=== PATIENT | female | born 1990 | race African-American/Black ===

== ENCOUNTER 2018-03-25 13:37 | Emergency (ER) | payer OTHER ==
[2018-03-25 13:50] VITALS: BP 100/70; PULSE 103; TEMP 98.4; BMI 46.1
--- NOTE | 2018-03-25 13:57 | PDOC ---
History of Present Illness - General Chief Complaint: Pain Stated Complaint: PAIN Time Seen by Provider: 03/25/18 13:56 Past History - Past Medical History Allergies/Adverse Reactions: Allergies Allergy/AdvReac Type Severity Reaction Status Date / Time SEAFOOD Allergy Swelling Uncoded 03/25/18 13:47 Home Medications: Ambulatory Orders Nitrofurantoin Monohyd/M-Cryst [Macrobid -] 100 mg PO BID #14 capsule 09/12/14 Terconazole [Terazol 7] 45 gm VG DAILY #1 cream.appl 09/12/14 Asthma: Yes COPD: No - Suicide/Smoking/Psychosocial Hx Smoking History: Never smoked Hx Alcohol Use: Yes (OCC) *Physical Exam - Vital Signs Last Vital Signs Temp Pulse Resp BP Pulse Ox 98.4 F 103 H 18 100/70 98 03/25/18 13:48 03/25/18 13:48 03/25/18 13:48 03/25/18 13:48 03/25/18 13:48 *DC/Admit/Observation/Transfer - Referrals Referrals: Giovanny Hall [Primary Care Provider] - - Patient Instructions - Post Discharge Activity
--- NOTE | 2018-03-25 14:02 | PDOC ---
History of Present Illness - General Chief Complaint: Pain Stated Complaint: PAIN Time Seen by Provider: 03/25/18 13:56 History Source: Patient Exam Limitations: No Limitations - History of Present Illness Initial Comments: 03/25/18 14:02 27 yr female states she is 4 months with 4 days abd cramping and vaginal discharge. Pt denies nvd no fever no chills no back pain. Pt has had an unremarkable course. Past History - Past Medical History Allergies/Adverse Reactions: Allergies Allergy/AdvReac Type Severity Reaction Status Date / Time No Known Drug Allergies Allergy Verified 03/25/18 16:23 SEAFOOD Allergy Swelling Uncoded 03/25/18 13:47 Home Medications: Ambulatory Orders Nitrofurantoin Monohyd/M-Cryst [Macrobid -] 100 mg PO BID #14 capsule 09/12/14 Terconazole [Terazol 7] 45 gm VG DAILY #1 cream.appl 09/12/14 Asthma: Yes COPD: No - Suicide/Smoking/Psychosocial Hx Smoking History: Never smoked Hx Alcohol Use: Yes (OCC) *Physical Exam - Vital Signs Last Vital Signs Temp Pulse Resp BP Pulse Ox 98.4 F 103 H 18 100/70 98 03/25/18 13:48 03/25/18 13:48 03/25/18 13:48 03/25/18 13:48 03/25/18 13:48 - Physical Exam General Appearance: Yes: Nourished, Obese HEENT: positive: EOMI, MIKE Neck: positive: Supple Respiratory/Chest: positive: Lungs Clear, Normal Breath Sounds Cardiovascular: positive: Regular Rhythm, Regular Rate Female Pelvic Exam: positive: normal external exam, discharge (thick yellow/ green). negative: CMT Musculoskeletal: positive: Normal Inspection Extremity: positive: Normal Inspection, Normal Range of Motion Medical Decision Making - Medical Decision Making 03/25/18 14:32 cc: vaginal discharge for 3 days with cramping no vaginal bleeding denies nvd one partner last sexual activity 2 weeks ago denies any painful intercourse LMP 11/13/17 cultures obtained, UA , pt to ultrasound pt stable no distress. 03/25/18 15:02 *DC/Admit/Observation/Transfer Diagnosis at time of Disposition: Vaginal discharge during in second trimester - Discharge Dispostion Disposition: HOME Condition at time of disposition: Good - Referrals Referrals: Giovanny Hall [Non Staff, Medical] - - Patient Instructions Additional Instructions: please follow with your OB next week call Wednesday to make appointment please tell your sexual partner to be tested for STD infections refrain from any sexual activity until you have been notified of the culture results done today , we should be calling you in 3-5 days with the results, you have been treated today for vaginal infections, you may need more treatment depending on the results return to the ER for any severe pain , fever, vaginal bleeding or any other concerns - Post Discharge Activity
[2018-03-25 14:29] LABS: URINE APPEARANCE SLCLOUDY; URINE BILIRUBIN NEGATIVE (<2.0 mg/dL); URINE COLOR AMBER; URINE GLUCOSE (UA) NEGATIVE (NEGATIVE); URINE KETONE NEGATIVE (NEGATIVE); URINE NITRITE NEGATIVE (NEGATIVE); URINE PROTEIN NEGATIVE (NEGATIVE)
[2018-03-25] MEDS ORDERED: AZITHROMYCIN 1 GM PACKET PO ONE (14:30)
[2018-03-25 14:40] LABS: URINE LEUK ESTERASE 2+ (NEGATIVE)
[2018-03-25 14:41] LABS: EPI CELLS RARE /HPF (FEW); URINE BACTERIA RARE /hpf (NONE SEEN); URINE HYALINE CAST 1 /lpf; URINE MUCUS RARE
[2018-03-25] MEDS ORDERED: cefTRIAXone SODIUM 1 GM VIAL ONE (15:09)
[2018-03-25] MEDS ORDERED: AZITHROMYCIN 200 MG/5 ML BOTTLE ONE (15:09)
== END 2018-03-25 16:40 | disposition home or self-care (01) ==
LOC: JER 13:37
DX: O26.892 Other specified pregnancy related conditions, second trimester (principal); N89.8 Other specified noninflammatory disorders of vagina; Z3A.16 16 weeks gestation of pregnancy
CPT/HCPCS: 36415; 76815; 81003; 81015; 87070; 87086; 87205; 87491; 87591; 99282-25

== ENCOUNTER 2018-09-02 17:20 | Inpatient (IN) | payer OTHER ==
[2018-09-02] MEDS ORDERED: AMPICILLIN - 2 GM in DEXTROSE 5%-WATER 100 ML IVPB ONE (18:00)
[2018-09-02 18:10] VITALS: BMI 64.4
[2018-09-02] MEDS ORDERED: ELECTROLYTE-148 SOLN 1,000 ML IV SCH ×2 (18:15→19:45)
[2018-09-02] MEDS ORDERED: MIDAZOLAM HCL 2 MG/2 ML SINGLE DOSE VIAL ONE (18:32)
[2018-09-02] MEDS ORDERED: SUCCINYLCHOLINE CHLORIDE 200 MG/10 ML VIAL ONE (18:33)
[2018-09-02] MEDS ORDERED: PROPOFOL 20 ML ONE (18:33)
[2018-09-02] MEDS ORDERED: LIDOCAINE HCL/PF 2% SDV 5ML VIAL ONE (18:34)
[2018-09-02] MEDS ORDERED: morphine SULFATE/Preservative Free 0.5 MG/ML (1cc Syringe) ONE ×2 (18:51→19:49)
[2018-09-02 19:01] LABS: BASO % 1.1 % (0-2.0); EOS % 0.2 % (0-4.5); HEMATOCRIT 34.9 % (32.4-45.2); MCH 34.2 pg (25.7-33.7); MCHC 34.3 g/dl (32.0-36.0); MEAN CELL VOLUME 99.7 fl (80-96); MEAN PLT VOLUME 7.9 fl (7.5-11.1); MONO % 6.4 % (3.8-10.2); NEUT % 68.3 % (42.8-82.8); PLATELET COUNT 320 K/MM3 (134-434); RDW 12.3 % (11.6-15.6); WHITE BLOOD COUNT 10.7 K/mm3 (4.0-10.0)
[2018-09-02 19:14] LABS: INR 0.86 (0.83-1.09); PROTHROMBIN TIME (PATIENT) 10.1 SEC (9.7-13.0)
[2018-09-02] MEDS: AMPICILLIN - 1 GM in DEXTROSE 5%-WATER 100 ML IVPB SCH (19:30)
[2018-09-02] MEDS ORDERED: CITRIC ACID/SODIUM CITRATE 30 ML UNIT-DOSE CUP PO ONE (19:42)
[2018-09-02 19:44] LABS: ALBUMIN 2.7 g/dl (3.4-5.0); ALK PHOS 217 U/L (45-117); ANION GAP 10 MMOL/L (8-16); BILIRUBIN,TOTAL 0.5 mg/dL (0.2-1); BLOOD UREA NITROGEN 10 mg/dL (7-18); CALCIUM 8.6 mg/dL (8.5-10.1); CHLORIDE 105 mmol/L (98-107); CO2 23 mmol/L (22-28); CREATININE 0.6 mg/dL (0.55-1.3); GLUCOSE,RANDOM 135 mg/dL (74-106); SGOT/AST 20 U/L (15-37); SGPT/ALT 22 U/L (13-61); SODIUM 137 mmol/L (136-145); TOT PROT 6.2 g/dl (6.4-8.2); URIC ACID 4.3 mg/dL (2.6-7.2)
[2018-09-02] MEDS ORDERED: OXYTOCIN 10 UNITS/ML VIAL ONE (19:58)
[2018-09-02] MEDS ORDERED: AMPICILLIN SODIUM 1 GM VIAL ONE (20:01)
[2018-09-02] MEDS ORDERED: KETOROLAC TROMETHAMINE 30 MG/1 ML VIAL ONE (20:19)
--- NOTE | 2018-09-02 20:22 | HP ---
Past Medical History - Primary Care Physician PCP:: David Hall - Admission Chief Complaint: 40 weeks , rom, meconium , labor , non reassuring heart, morbid obesity History of Present Illness: 28 yo f g 1 p0 edc 09/02/18 40 weeks, c/o rom since 2 pm today , yellow fluid , with contraction, no bleeding, no fever , fhr poor BTBV with decelration, irregular contraction , cx 2 cm 80 vx -3 mr, thick mec , advised c/s , risks of c/s discussed in view of morbid obesity History Source: Patient Limitations to Obtaining History: No Limitations - Past Medical History Pulmonary: Yes: Asthma ...: 1 ...EDC by Daniel: 09/02/18 Infectious Disease: Yes: STD's (txed for chlamydia) - Past Surgical History Hx Myomectomy: No Hx Transabdominal Cerclage: No - Smoking History Smoking history: Never smoked Have you smoked in the past 12 months: No - Alcohol/Substance Use Hx Alcohol Use: No - Social History History of Recent Travel: No Home Medications - Allergies Allergies/Adverse Reactions: Allergies Allergy/AdvReac Type Severity Reaction Status Date / Time No Known Drug Allergies Allergy Verified 03/25/18 16:23 SEAFOOD Allergy Swelling Uncoded 03/25/18 13:47 - Home Medications Home Medications: Ambulatory Orders Nitrofurantoin Monohyd/M-Cryst [Macrobid -] 100 mg PO BID #14 capsule 09/12/14 Terconazole [Terazol 7] 45 gm VG DAILY #1 cream.appl 09/12/14 Review of Systems - Review of Systems Constitutional: reports: No Symptoms Eyes: reports: No Symptoms HENT: reports: No Symptoms Neck: reports: No Symptoms Cardiovascular: reports: No Symptoms Respiratory: reports: No Symptoms Gastrointestinal: reports: No Symptoms Genitourinary: reports: No Symptoms Breasts: reports: No Symptoms Reported Musculoskeletal: reports: No Symptoms Integumentary: reports: No Symptoms Neurological: reports: No Symptoms Endocrine: reports: No Symptoms Hematology/Lymphatic: reports: No Symptoms Psychiatric: reports: No Symptoms Physical Exam - Maternity Vital Signs: Vital Signs Temperature 98.4 F 09/02/18 18:20 Pulse Rate 90 09/02/18 18:30 Respiratory Rate 18 09/02/18 18:30 Blood Pressure 165/110 H 09/02/18 18:30 O2 Sat by Pulse Oximetry (%) Constitutional: Yes: Obese, Poor Hygeine Eyes: Yes: WNL HENT: Yes: WNL Neck: Yes: WNL Cardiovascular: Yes: WNL Breast(s): Yes: WNL - Abdominal Exam/OB Number of Fetuses: Single Presentation: Vertex Contractions: Yes Regularity: Irregular Intensity: Mod/Strong Monitor Mode: External Heart Rate Location: [facility] Category: II Accelerations: None Decelerations: Variable - Vaginal Exam/OB Vaginal Bleediing: No Speculum Exam: No Dilatation (cm): 2 cm Effacement (%): 80 Amniotic Fluid: Yes: Meconium Stained Meconium: Moderate Presentation: Vertex/Position Station: -3 - Physical Exam Edema: Yes Edema: LLE: 1+, RLE: 1+ Deep Tendon Reflex Grade: Normal +2 Psychiatric: Yes: WNL - Labs Lab Results: CBC, BMP 09/02/18 18:51 09/02/18 18:51 Hemorrhage Risk Assessment - Risk Factors Medium Risk Factors: Yes: Obesity (BMI >40) Risk Score: 3 Risk Level: High Risk Problem List - Problems (1) Post term over 40 weeks Code(s): O48.0 - POST-TERM (2) 40 weeks gestation of Code(s): Z3A.40 - 40 WEEKS GESTATION OF (3) membrane rupture Code(s): KCC9884 - (4) Meconium in amniotic fluid Code(s): P96.83 - MECONIUM STAINING (5) Non-reassuring electronic monitoring tracing Code(s): O76 - ABNLT IN HEART RATE AND RHYTHM COMP LABOR AND DELIVERY (6) Morbid (severe) obesity due to excess calories Code(s): E66.01 - MORBID (SEVERE) OBESITY DUE TO EXCESS CALORIES Assessment/Plan plan admit, fhm, need for c/s discussed with patient , risks of infection, bleeding, hemorrhage , dvt, anesthesia , post op complication discussed
[2018-09-02 20:36] LABS: ARTERIAL BLOOD GAS BASE EXCESS -10.8 meq/l (-2-2); ARTERIAL BLOOD GAS PO2 4.8 mmHg (80-100)
[2018-09-02 20:45] LABS: VENOUS PH 7.13 (7.32-7.42)
[2018-09-02 20:46] LABS: VENOUS PC02 66.5 mmHg (38-52); VENOUS PO2 19.5 mmHg (28-48)
[2018-09-02 20:47] LABS: ARTERIAL BLOOD GAS pH 7.06 (7.35-7.45)
[2018-09-02 20:48] LABS: ARTERIAL BLD GAS O2 SATURATION 2.4 % (90-98.9)
[2018-09-02] MEDS ORDERED: OXYTOCIN 20 UNITS in 0.9% NS 20 UNIT/1,000 ML INFUS.BAG IV ONE ×2 (20:57→23:44)
[2018-09-02] MEDS ORDERED: IBUPROFEN 800 MG/8 ML IJ IVPB PRN (21:18)
[2018-09-02] MEDS ORDERED: BENZOCAINE 20% 57 GM BOTTLE TP PRN (21:18)
[2018-09-02] MEDS ORDERED: WITCH HAZEL 50% (TUCKS) 40 PAD/JAR PAD TP PRN (21:18)
[2018-09-02] MEDS ORDERED: oxyCODONE HCL 5 MG TABLET PO PRN (21:18)
[2018-09-02] MEDS ORDERED: METHYLERGONOVINE MALEATE 0.2 MG/1 ML AMP IM PRN (21:18)
[2018-09-02] MEDS ORDERED: diphenhydrAMINE HCL 25 MG CAPSULE (FP) PO PRN (21:18)
[2018-09-02] MEDS ORDERED: BENZOCAINE 28 GM HEMORRHOIDAL OINTMENT PR PRN (21:18)
[2018-09-02] MEDS ORDERED: DEXTROSE 5%-LACTATED RINGERS 1,000 ML IV SCH (21:30)
[2018-09-02] MEDS ORDERED: OXYTOCIN 20 UNITS in 0.9% NS 20 UNIT/1,000 ML INFUS.BAG IV SCH (21:30)
[2018-09-02] MEDS ORDERED: LABETALOL HCL 200 MG TABLET (FP) PO ONE (22:30)
[2018-09-02] MEDS ORDERED: NIFEdipine E.R. 30 MG TABLET (FP) PO ONE (23:45)
[2018-09-03] MEDS ORDERED: ceFAZolin 2 GRAM PREMIX BAG IVPB SCH (02:00)
[2018-09-03] MEDS: CEFAZOLIN 2 GM/D5W 2 GM/50 ML ML IVPB SCH ×3 (02:00→17:51)
[2018-09-03] MEDS: AMPICILLIN - 1 GM in DEXTROSE 5%-WATER 100 ML IVPB SCH ×2 (02:05→06:31)
[2018-09-03] MEDS ORDERED: OXYTOCIN 20 UNITS in 0.9% NS 20 UNIT/1,000 ML INFUS.BAG IV SCH (05:29)
--- NOTE | 2018-09-03 09:00 | PN ---
Progress Note (short form) - Note Progress Note: pod 1s/p primary LST c/s , doing well, no c/o Last Vital Signs Temp Pulse Resp BP Pulse Ox 98.2 F 95 H 18 122/63 100 09/03/18 08:33 09/03/18 08:33 09/03/18 08:33 09/03/18 08:33 09/03/18 00:00 abdomen soft,no distension, no cva , incision dry, clean no calf tenderness no excess vaginal bleeding plan ambulate, cbc advance diet dvt prophylaxis Problem List - Problems (1) Post term over 40 weeks Code(s): O48.0 - POST-TERM (2) 40 weeks gestation of Code(s): Z3A.40 - 40 WEEKS GESTATION OF (3) membrane rupture Code(s): [id number] - (4) Meconium in amniotic fluid Code(s): P96.83 - MECONIUM STAINING (5) Non-reassuring electronic monitoring tracing Code(s): O76 - ABNLT IN HEART RATE AND RHYTHM COMP LABOR AND DELIVERY (6) Morbid (severe) obesity due to excess calories Code(s): E66.01 - MORBID (SEVERE) OBESITY DUE TO EXCESS CALORIES
[2018-09-03 09:11] LABS: BASO % 0.4 % (0-2.0); EOS % 0.2 % (0-4.5); HEMATOCRIT 29.9 % (32.4-45.2); HEMOGLOBIN 10.2 GM/dL (10.7-15.3); LYMPH % 24.6 % (8-40); MCH 33.8 pg (25.7-33.7); MEAN CELL VOLUME 99.5 fl (80-96); MEAN PLT VOLUME 7.5 fl (7.5-11.1); MONO % 9.6 % (3.8-10.2); NEUT % 65.2 % (42.8-82.8); PLATELET COUNT 270 K/MM3 (134-434); RDW 12.3 % (11.6-15.6); WHITE BLOOD COUNT 11.3 K/mm3 (4.0-10.0)
--- NOTE | 2018-09-03 09:36 | PN ---
Progress Note (short form) - Note Progress Note: Post op day#1.S/P C section under spinal anesthesia uneventful.Patient stable and has little pain for which she is on medication.No any anesthesia realted problem.Patient DC from the anesthesia care.
[2018-09-03] MEDS: SIMETHICONE 80 MG TAB.CHEW (FP) PO PRN ×3 (09:37→19:29)
--- NOTE | 2018-09-03 09:41 | OP ---
DATE OF OPERATION: 09/02/2018 PREOPERATIVE DIAGNOSES: , 40 weeks, ruptured membrane, meconium amniotic fluid, nonreassuring heart rate, morbid obesity. POSTOPERATIVE DIAGNOSES: , 40 weeks, ruptured membrane, meconium amniotic fluid, nonreassuring heart rate, morbid obesity. PROCEDURE: Primary low segment transverse section. SURGEON: David Hall MD OBSTETRIC ASSISTANT: Milana Franco MD ESTIMATED BLOOD LOSS: 500 mL. ANESTHESIA: Spinal. ANESTHESIOLOGIST: Be Barrera MD FINDINGS: A live baby, 5, 7. OPERATION: Patient was taken to the operating room. Had adequate spinal anesthesia. Abdomen and perineum were prepped and draped. Pfannenstiel abdominal skin incision was made. Abdominal wall was cut layer by layer until peritoneum was exposed and incised. Upon entering the abdominal cavity bowels were packed away. Lower uterine segment was identified and uterovesical fold of peritoneum established. Bladder was pushed down. A low transverse uterine incision was made. The incision extended laterally. Meconium amniotic fluid was evident. Head delivered from occiput posterior position. Cord around the neck x1 reduced and live baby was delivered, 5, 7. Baby attended by hot box spotter. Placenta was delivered manually. Uterine cavity was cleaned of all remaining tissue. Uterine incision was closed in 2 layers, 1st layer with 0 Biosyn continuous suture, the 2nd layer with 0 Biosyn imbricating the 1st layer. There was some bleeding at the left anterior aspect of uterine incision which figure-of-8 suture was applied and hemostasis was established. Then the bladder flap was closed with continuous suture of 2-0 Biosyn. Both tubes and ovaries were checked, were normal. No active bleeding was seen. All the lap pad, sponge count and instrument count were correct. Pelvic cavity irrigated. No active bleeding was seen. Peritoneum was closed with 0 Biosyn continuous suture. Muscle layer brought together with interrupted suture of 0 Biosyn. Fascia was closed with 0 Biosyn continuous suture, subcutaneous fat with interrupted suture of 0 Biosyn and the skin was closed with yulisa. Patient tolerated procedure well, left the OR in good condition. Selwyn [id number]
--- NOTE | 2018-09-03 09:59 | CONSULT ---
Consult Consult Specialty:: Nephrology ( Baljinder/ Jaya) Referred by:: Dr. William Reason for Consultation:: 28 yo f g p0 edc 09/02/18 40 weeks, morbidly obese, s/p LSCS, patient developed Hypertension intra- and Hypertensuion. - History Source History Provided By: Patient, Medical Record - Past Medical History Pulmonary: Yes: Asthma Renal/: No: Hematuria Infectious Disease: Yes: STD's (txed for chlamydia) Rheumatology: No: Lupus, Vasculitis ENT: No: Sinusitis - Alcohol/Substance Use Hx Alcohol Use: No - Smoking History Smoking history: Never smoked Have you smoked in the past 12 months: No - Social History History of Recent Travel: No Home Medications - Allergies Allergies/Adverse Reactions: Allergies Allergy/AdvReac Type Severity Reaction Status Date / Time No Known Drug Allergies Allergy Verified 03/25/18 16:23 SEAFOOD Allergy Swelling Uncoded 03/25/18 13:47 - Home Medications Home Medications: Ambulatory Orders Nitrofurantoin Monohyd/M-Cryst [Macrobid -] 100 mg PO BID #14 capsule 09/12/14 Terconazole [Terazol 7] 45 gm VG DAILY #1 cream.appl 09/12/14 Review of Systems - Review of Systems Constitutional: reports: No Symptoms Eyes: denies: Blurred Vision, Double Vision, Eye Pain, Photophobia Cardiovascular: reports: No Symptoms Respiratory: reports: No Symptoms Gastrointestinal: reports: No Symptoms Genitourinary: reports: No Symptoms Neurological: reports: No Symptoms Endocrine: reports: No Symptoms Hematology/Lymphatic: reports: No Symptoms Psychiatric: reports: No Symptoms Physical Exam Vital Signs: Vital Signs Temperature 98.2 F 09/03/18 08:33 Pulse Rate 95 H 09/03/18 08:33 Respiratory Rate 20 09/03/18 09:00 Blood Pressure 122/63 09/03/18 08:33 O2 Sat by Pulse Oximetry (%) 100 09/03/18 00:00 Constitutional: Yes: Well Nourished, Other (morbidly obese) Eyes: Yes: WNL HENT: Yes: WNL Neck: Yes: WNL, Supple Cardiovascular: Yes: Regular Rate and Rhythm Respiratory: Yes: CTA Bilaterally, Diminished, Poor Air Entry Gastrointestinal: Yes: Normal Bowel Sounds Renal/: No: CVA Tenderness - Left, CVA Tenderness - Right Edema: Yes Edema: LLE: Trace, RLE: Trace Integumentary: Yes: WNL Neurological: Yes: Alert, Oriented Labs: CBC, BMP 09/03/18 08:44 09/02/18 18:51 Problem List - Problems (1) Hypertension affecting , delivered, current hospitalization Code(s): O16.4 - UNSPECIFIED MATERNAL HYPERTENSION, COMPLICATING CHILDBIRTH (2) 40 weeks gestation of Code(s): Z3A.40 - 40 WEEKS GESTATION OF Assessment/Plan 28 yo f g 1 p0 edc 09/02/18 40 weeks, morbid obesity, Ch. Bronchial asthma... S/P LSCS Hypertension associated with . Treated with Labetalol. No evidence of HELLP. BP in acceptable range at this point. Will Continue the labetalol PRN. Extensive w/u not warranted at this point. Thank you. Will follow with you. Lupe rizo MD
[2018-09-03] MEDS: IBUPROFEN 600 MG TABLET (FP) PO PRN (14:24)
[2018-09-03] MEDS: oxyCODONE HCL 5 MG TABLET PO PRN (14:25)
[2018-09-03] MEDS: ENOXAPARIN NA (PORCINE) 40 MG/0.4 ML DISP.SYRIN SQ SCH (14:28)
[2018-09-03] MEDS: LABETALOL HCL 200 MG TABLET (FP) PO PRN (16:00)
[2018-09-03] MEDS ORDERED: ceFAZolin SODIUM 1 GM VIAL ONE (17:31)
[2018-09-03] MEDS: ACETAMINOPHEN 325 MG TABLET (FP) PO PRN (19:31)
[2018-09-03] MEDS ORDERED: BISACODYL 10 MG SUPP.RECT RC PRN (21:18)
[2018-09-04] MEDS: ACETAMINOPHEN 325 MG TABLET (FP) PO PRN ×3 (01:00→09:32)
[2018-09-04] MEDS: SIMETHICONE 80 MG TAB.CHEW (FP) PO PRN ×6 (01:00→21:30)
[2018-09-04] MEDS: oxyCODONE HCL 5 MG TABLET PO PRN ×5 (01:02→21:31)
[2018-09-04] MEDS: LABETALOL HCL 200 MG TABLET (FP) PO PRN ×2 (06:08→21:31)
[2018-09-04] MEDS: ENOXAPARIN NA (PORCINE) 40 MG/0.4 ML DISP.SYRIN SQ SCH (09:22)
[2018-09-04] MEDS: IBUPROFEN 600 MG TABLET (FP) PO PRN ×4 (09:32→21:30)
--- NOTE | 2018-09-04 12:00 | PN ---
Progress Note, Physician Chief Complaint: The patient's BP remains fluctuant. Occasional need for the PRN Labetalol. clinically stable. - Current Medication List Current Medications: Active Medications Acetaminophen (Tylenol -) 650 mg PO Q4H PRN PRN Reason: FEVER Last Admin: 09/04/18 09:32 Dose: 650 mg Benzocaine (Americaine 20% [place] -) 1 spray TP PRN PRN PRN Reason: Pain - Topical Benzocaine (Americaine Ointment -) 1 applic IN PRN PRN PRN Reason: Pain - Topical Bisacodyl (Dulcolax Suppository -) 10 mg RC PRN PRN PRN Reason: CONSTIPATION Last Admin: 09/04/18 09:26 Dose: 10 mg Diphenhydramine HCl (Benadryl -) 25 mg PO Q8H PRN PRN Reason: FOR ITCHING Enoxaparin Sodium (Lovenox -) 40 mg SQ DAILY SAMANTHA Last Admin: 09/04/18 09:22 Dose: 40 mg Parenteral Electrolytes (Plasma-Lyte 148 -) 1,000 mls @ 125 mls/hr IV ASDIR SAMANTHA Last Admin: 09/02/18 19:00 Dose: 125 mls/hr Dextrose/Lactated Ringer's (D5-Lr -) 1,000 mls @ 125 mls/hr IV ASDIR SAMANTHA Oxytocin/Sodium Chloride (Normal Saline+20 Units Oxytocin -) 20 unit in 1,000 mls @ 125 mls/hr IV ASDIR SAMANTHA Ibuprofen (Motrin -) 600 mg PO Q4H PRN PRN Reason: PAIN LEVEL 1 - 3 Last Admin: 09/04/18 09:32 Dose: 600 mg Ibuprofen (Caldolor Injection -) 800 mg IVPB Q6H PRN PRN Reason: PAIN 6-10 if PO not effective. Last Admin: 09/03/18 06:41 Dose: 800 mg Labetalol HCl (Normodyne -) 200 mg PO Q6H PRN PRN Reason: HYPERTENSION Last Admin: 09/04/18 06:08 Dose: 200 mg Methylergonovine Maleate (Methergine Injection -) 0.2 mg IM Q4H PRN PRN Reason: EXCESSIVE BLEEDING Oxycodone HCl (Roxicodone -) 5 mg PO Q4H PRN PRN Reason: PAIN LEVEL 4 - 6 Last Admin: 09/03/18 19:29 Dose: 5 mg Oxycodone HCl (Roxicodone -) 10 mg PO Q4H PRN PRN Reason: PAIN LEVEL 7 - 10 Last Admin: 09/04/18 06:08 Dose: 10 mg Senna/Docusate Sodium (Pericolace -) 2 tablet PO HS PRN PRN Reason: CONSTIPATION Simethicone (Mylicon -) 80 mg PO Q4H PRN PRN Reason: GAS Last Admin: 09/04/18 09:32 Dose: 80 mg Witch Alaina/Glycerin (Tucks Pads -) 1 pad TP PRN PRN PRN Reason: Pain - Topical - Objective Vital Signs: Vital Signs Temperature 98.5 F 09/04/18 10:00 Pulse Rate 101 H 09/04/18 10:00 Respiratory Rate 20 09/04/18 10:00 Blood Pressure 130/75 09/04/18 10:00 O2 Sat by Pulse Oximetry (%) 100 09/03/18 00:00 Constitutional: Yes: Well Nourished HENT: Yes: Normocephalic Neck: Yes: Trachea Midline Cardiovascular: Yes: Regular Rate and Rhythm, S1, S2 Respiratory: Yes: Diminished, Poor Air Entry Gastrointestinal: Yes: Normal Bowel Sounds, Abdomen, Obese Labs: CBC, BMP 09/03/18 08:44 09/02/18 18:51 INR, PTT INR 0.86 (0.83-1.09) 09/02/18 18:51 Problem List - Problems (1) Hypertension affecting , delivered, current hospitalization Code(s): O16.4 - UNSPECIFIED MATERNAL HYPERTENSION, COMPLICATING CHILDBIRTH (2) 40 weeks gestation of Code(s): Z3A.40 - 40 WEEKS GESTATION OF Assessment/Plan 28 morbidly obese female with Ch. Bronchial asthma... S/P LSCS Hypertension associated with . Treated with Labetalol. No evidence of HELLP. BP in acceptable range at this point, with occasional spikes. Will Continue the labetalol PRN. Patient needs education about life style modification... diet, weight reduction etc. Thank you. Will follow with you. Lupe rizo MD
--- NOTE | 2018-09-04 19:04 | PN ---
Progress Note (short form) - Note Progress Note: pod 2. doing well, ambulating , no excess vaginal bleeding, had BM CBC, BMP 09/03/18 08:44 09/02/18 18:51 Last Vital Signs Temp Pulse Resp BP Pulse Ox 97.9 F 88 20 123/69 100 09/04/18 17:40 09/04/18 17:40 09/04/18 17:40 09/04/18 17:40 09/03/18 00:00 abdomen soft, no distension, no cva incision dry, clean no calf tenderness plan ambulate , cbc in am Problem List - Problems (1) Post term over 40 weeks Code(s): O48.0 - POST-TERM (2) 40 weeks gestation of Code(s): Z3A.40 - 40 WEEKS GESTATION OF (3) membrane rupture Code(s): [id number] - (4) Meconium in amniotic fluid Code(s): P96.83 - MECONIUM STAINING (5) Non-reassuring electronic monitoring tracing Code(s): O76 - ABNLT IN HEART RATE AND RHYTHM COMP LABOR AND DELIVERY (6) Morbid (severe) obesity due to excess calories Code(s): E66.01 - MORBID (SEVERE) OBESITY DUE TO EXCESS CALORIES
[2018-09-04] MEDS: SENNOSIDES/DOCUSATE COMBO (SENNA PLUS) TABLET (UD) PO PRN (21:30)
[2018-09-05] MEDS: IBUPROFEN 600 MG TABLET (FP) PO PRN ×4 (01:41→20:28)
[2018-09-05] MEDS: SIMETHICONE 80 MG TAB.CHEW (FP) PO PRN ×5 (01:41→20:26)
[2018-09-05] MEDS: oxyCODONE HCL 5 MG TABLET PO PRN ×5 (01:42→20:27)
[2018-09-05] MEDS: LABETALOL HCL 200 MG TABLET (FP) PO PRN (06:14)
--- NOTE | 2018-09-05 07:05 | PN ---
Progress Note (short form) - Note Progress Note: pod 3 doing well, no c/o , CBC, BMP 09/03/18 08:44 09/02/18 18:51 Last Vital Signs Temp Pulse Resp BP Pulse Ox 98.5 F 91 H 20 138/96 100 09/05/18 06:04 09/05/18 06:04 09/05/18 06:04 09/05/18 06:04 09/03/18 00:00 abdomen soft, no distension, no cva , incision healing well, dry, no discharge no excess vaginal bleding no calf tenderness or swelling plan for d/c home in am ambulate cbc today Problem List - Problems (1) Post term over 40 weeks Code(s): O48.0 - POST-TERM (2) 40 weeks gestation of Code(s): Z3A.40 - 40 WEEKS GESTATION OF (3) membrane rupture Code(s): [id number] - (4) Meconium in amniotic fluid Code(s): P96.83 - MECONIUM STAINING (5) Non-reassuring electronic monitoring tracing Code(s): O76 - ABNLT IN HEART RATE AND RHYTHM COMP LABOR AND DELIVERY (6) Morbid (severe) obesity due to excess calories Code(s): E66.01 - MORBID (SEVERE) OBESITY DUE TO EXCESS CALORIES
[2018-09-05] MEDS: ACETAMINOPHEN 325 MG TABLET (FP) PO PRN (07:08)
[2018-09-05 07:49] LABS: BASO % 0.2 % (0-2.0); EOS % 1.8 % (0-4.5); HEMATOCRIT 29.2 % (32.4-45.2); HEMOGLOBIN 9.8 GM/dL (10.7-15.3); LYMPH % 23.8 % (8-40); MCH 33.7 pg (25.7-33.7); MCHC 33.7 g/dl (32.0-36.0); MEAN CELL VOLUME 99.8 fl (80-96); MEAN PLT VOLUME 7.3 fl (7.5-11.1); MONO % 9.8 % (3.8-10.2); NEUT % 64.4 % (42.8-82.8); PLATELET COUNT 265 K/MM3 (134-434); RBC 2.92 M/mm3 (3.60-5.2); RDW 12.3 % (11.6-15.6); WHITE BLOOD COUNT 8.3 K/mm3 (4.0-10.0)
[2018-09-05] MEDS: ENOXAPARIN NA (PORCINE) 40 MG/0.4 ML DISP.SYRIN SQ SCH (09:22)
--- NOTE | 2018-09-05 11:06 | PN ---
Progress Note, Physician Chief Complaint: The patient's BP seems to be in better range. Needed labetalol almost q8H. Clinically stable. Has a very flat affect. - Current Medication List Current Medications: Active Medications Acetaminophen (Tylenol -) 650 mg PO Q4H PRN PRN Reason: FEVER Last Admin: 09/05/18 07:08 Dose: 650 mg Benzocaine (Americaine 20% [place] -) 1 spray TP PRN PRN PRN Reason: Pain - Topical Benzocaine (Americaine Ointment -) 1 applic [place] PRN PRN PRN Reason: Pain - Topical Bisacodyl (Dulcolax Suppository -) 10 mg RC PRN PRN PRN Reason: CONSTIPATION Last Admin: 09/04/18 09:26 Dose: 10 mg Diphenhydramine HCl (Benadryl -) 25 mg PO Q8H PRN PRN Reason: FOR ITCHING Enoxaparin Sodium (Lovenox -) 40 mg SQ DAILY [facility] Last Admin: 09/05/18 09:22 Dose: 40 mg Parenteral Electrolytes (Plasma-Lyte 148 -) 1,000 mls @ 125 mls/hr IV ASDIR [facility] Last Admin: 09/02/18 19:00 Dose: 125 mls/hr Dextrose/Lactated Ringer's (D5-Lr -) 1,000 mls @ 125 mls/hr IV ASDIR SAMANTHA Oxytocin/Sodium Chloride (Normal Saline+20 Units Oxytocin -) 20 unit in 1,000 mls @ 125 mls/hr IV ASDIR [facility] Ibuprofen (Motrin -) 600 mg PO Q4H PRN PRN Reason: PAIN LEVEL 1 - 3 Last Admin: 09/05/18 11:01 Dose: 600 mg Ibuprofen (Caldolor Injection -) 800 mg IVPB Q6H PRN PRN Reason: PAIN 6-10 if PO not effective. Last Admin: 09/03/18 06:41 Dose: 800 mg Labetalol HCl (Normodyne -) 200 mg PO TID [facility] Stop: 09/07/18 06:01 Methylergonovine Maleate (Methergine Injection -) 0.2 mg IM Q4H PRN PRN Reason: EXCESSIVE BLEEDING Oxycodone HCl (Roxicodone -) 5 mg PO Q4H PRN PRN Reason: PAIN LEVEL 4 - 6 Last Admin: 09/03/18 19:29 Dose: 5 mg Oxycodone HCl (Roxicodone -) 10 mg PO Q4H PRN PRN Reason: PAIN LEVEL 7 - 10 Last Admin: 09/05/18 11:00 Dose: 10 mg Senna/Docusate Sodium (Pericolace -) 2 tablet PO HS PRN PRN Reason: CONSTIPATION Last Admin: 09/04/18 21:30 Dose: 2 tablet Simethicone (Mylicon -) 80 mg PO Q4H PRN PRN Reason: GAS Last Admin: 09/05/18 11:02 Dose: 80 mg Witch Alaina/Glycerin (Tucks Pads -) 1 pad TP PRN PRN PRN Reason: Pain - Topical - Objective Vital Signs: Vital Signs Temperature 97.9 F 09/05/18 10:30 Pulse Rate 82 09/05/18 10:30 Respiratory Rate 20 09/05/18 10:30 Blood Pressure 115/53 L 09/05/18 10:30 O2 Sat by Pulse Oximetry (%) 100 09/03/18 00:00 Constitutional: Yes: Well Nourished Eyes: Yes: Conjunctiva Clear Neck: Yes: Trachea Midline Cardiovascular: Yes: S1, S2 Respiratory: Yes: CTA Bilaterally, Diminished Edema: Yes Edema: LLE: Trace, RLE: Trace Neurological: Yes: WNL, Alert Labs: CBC, BMP 09/05/18 06:30 09/02/18 18:51 INR, PTT INR 0.86 (0.83-1.09) 09/02/18 18:51 Problem List - Problems (1) Hypertension affecting , delivered, current hospitalization Code(s): O16.4 - UNSPECIFIED MATERNAL HYPERTENSION, COMPLICATING CHILDBIRTH (2) 40 weeks gestation of Code(s): Z3A.40 - 40 WEEKS GESTATION OF Assessment/Plan 28 morbidly obese ( 330 lbs) female with Ch. Bronchial asthma... S/P LSCS Hypertension associated with . Treated with Labetalol. No evidence of HELLP. BP in acceptable range at this point, with occasional spikes. Will Continue the labetalol PRN. The dose schedule modified. Patient needs education about life style modification... diet, weight reduction etc. Thank you. Will follow with you. Lupe Gale MD
[2018-09-05] MEDS: LABETALOL HCL 200 MG TABLET (FP) PO SCH ×2 (14:00→21:38)
[2018-09-05] MEDS: SENNOSIDES/DOCUSATE COMBO (SENNA PLUS) TABLET (UD) PO PRN (21:35)
[2018-09-06] MEDS: oxyCODONE HCL 5 MG TABLET PO PRN ×4 (01:34→14:19)
[2018-09-06] MEDS: SIMETHICONE 80 MG TAB.CHEW (FP) PO PRN ×4 (01:34→14:24)
[2018-09-06] MEDS: IBUPROFEN 600 MG TABLET (FP) PO PRN ×4 (01:35→14:23)
[2018-09-06] MEDS: LABETALOL HCL 200 MG TABLET (FP) PO SCH ×2 (06:57→14:00)
--- NOTE | 2018-09-06 09:00 | PN ---
Post Progress Note - Subjective Subjective: 28 yo Para 1, obese, status post primary , seen and evaluated. She has a flat affect. She barely answers to questions asked. She doesn't have any complaints. Post Day: 3 Type of Delivery: Primary C/S Vital Signs: Vital Signs Temperature 98 F 09/06/18 06:00 Pulse Rate 90 09/06/18 06:00 Respiratory Rate 18 09/06/18 06:00 Blood Pressure 160/88 09/06/18 06:00 O2 Sat by Pulse Oximetry (%) 100 09/03/18 00:00 Breast Exam: Yes: Soft Uterus: Yes: Fundus Firm Incision: Yes: [place] intact Abdomen/GI: Yes: Abdomen soft, Tolerating PO Lochia: Yes: Rubra Lochia, amount: Small Extremities: Yes: Calves non-tender - Labs Labs: CBC WBC 8.3 K/mm3 (4.0-10.0) 09/05/18 06:30 RBC 2.92 M/mm3 (3.60-5.2) L 09/05/18 06:30 Hgb 9.8 GM/dL (10.7-15.3) L 09/05/18 06:30 Hct 29.2 % (32.4-45.2) L 09/05/18 06:30 MCV 99.8 fl (80-96) H 09/05/18 06:30 MCH 33.7 pg (25.7-33.7) 09/05/18 06:30 MCHC 33.7 g/dl (32.0-36.0) 09/05/18 06:30 RDW 12.3 % (11.6-15.6) 09/05/18 06:30 Plt Count 265 K/MM3 (134-434) 09/05/18 06:30 MPV 7.3 fl (7.5-11.1) L 09/05/18 06:30 Absolute Neuts (auto) 5.4 K/mm3 (1.5-8.0) 09/05/18 06:30 Neutrophils % 64.4 % (42.8-82.8) 09/05/18 06:30 Lymphocytes % 23.8 % (8-40) 09/05/18 06:30 Monocytes % 9.8 % (3.8-10.2) 09/05/18 06:30 Eosinophils % 1.8 % (0-4.5) D 09/05/18 06:30 Basophils % 0.2 % (0-2.0) 09/05/18 06:30 Nucleated RBC % 0 % (0-0) 09/05/18 06:30 Problem List - Problems (1) Status post primary low transverse section Code(s): Z98.891 - HISTORY OF UTERINE SCAR FROM PREVIOUS SURGERY Assessment/Plan Status post primary Hypertension Flat affect Psychiatry consult Continue management as per
[2018-09-06] MEDS: ENOXAPARIN NA (PORCINE) 40 MG/0.4 ML DISP.SYRIN SQ SCH (09:34)
[2018-09-06 09:41] VITALS: TEMP 98.9
--- NOTE | 2018-09-06 13:00 | CON.PSY ---
Psychiatry Consult Chief Complaint: Patient seen for Psych consult for flat affect. Patient has c serction yesterday. SDtaff report thst she has been behaving appropriatly toward the baby> No evidence of any anger or aggrtession toward the baby. She lives with her steo mother who do not report any ongoing Psych issues. Patient is not in treatment at this time. Has seen a therapist long time ago. Patient was relating well and responded to all questions well. She tends to be on the quiet side. - Previous Psychiatric Treatment Outpatient: More than 6 mos ago Inpatient: None - Previous Substance Abuse Treatment Outpatient: None Inpatient: None - Current Medications Current Medications: Active Medications Acetaminophen (Tylenol -) 650 mg PO Q4H PRN PRN Reason: FEVER Last Admin: 09/05/18 07:08 Dose: 650 mg Benzocaine (Americaine 20% [place] -) 1 spray TP PRN PRN PRN Reason: Pain - Topical Benzocaine (Americaine Ointment -) 1 applic [place] PRN PRN PRN Reason: Pain - Topical Bisacodyl (Dulcolax Suppository -) 10 mg RC PRN PRN PRN Reason: CONSTIPATION Last Admin: 09/04/18 09:26 Dose: 10 mg Diphenhydramine HCl (Benadryl -) 25 mg PO Q8H PRN PRN Reason: FOR ITCHING Enoxaparin Sodium (Lovenox -) 40 mg SQ DAILY [facility] Last Admin: 09/06/18 09:34 Dose: 40 mg Parenteral Electrolytes (Plasma-Lyte 148 -) 1,000 mls @ 125 mls/hr IV ASDIR [facility] Last Admin: 09/02/18 19:00 Dose: 125 mls/hr Dextrose/Lactated Ringer's (D5-Lr -) 1,000 mls @ 125 mls/hr IV ASDIR SAMANTHA Oxytocin/Sodium Chloride (Normal Saline+20 Units Oxytocin -) 20 unit in 1,000 mls @ 125 mls/hr IV ASDIR SAMANTHA Ibuprofen (Motrin -) 600 mg PO Q4H PRN PRN Reason: PAIN LEVEL 1 - 3 Last Admin: 09/06/18 09:33 Dose: 600 mg Ibuprofen (Caldolor Injection -) 800 mg IVPB Q6H PRN PRN Reason: PAIN 6-10 if PO not effective. Last Admin: 09/03/18 06:41 Dose: 800 mg Labetalol HCl (Normodyne -) 200 mg PO TID SAMANTHA Stop: 09/07/18 06:01 Last Admin: 09/06/18 06:57 Dose: 200 mg Methylergonovine Maleate (Methergine Injection -) 0.2 mg IM Q4H PRN PRN Reason: EXCESSIVE BLEEDING Oxycodone HCl (Roxicodone -) 5 mg PO Q4H PRN PRN Reason: PAIN LEVEL 4 - 6 Last Admin: 09/03/18 19:29 Dose: 5 mg Oxycodone HCl (Roxicodone -) 10 mg PO Q4H PRN PRN Reason: PAIN LEVEL 7 - 10 Last Admin: 09/06/18 09:31 Dose: 10 mg Senna/Docusate Sodium (Pericolace -) 2 tablet PO HS PRN PRN Reason: CONSTIPATION Last Admin: 09/05/18 21:35 Dose: 2 tablet Simethicone (Mylicon -) 80 mg PO Q4H PRN PRN Reason: GAS Last Admin: 09/06/18 09:34 Dose: 80 mg Witch Alaina/Glycerin (Tucks Pads -) 1 pad TP PRN PRN PRN Reason: Pain - Topical - Allergies Allergies: Allergies Allergy/AdvReac Type Severity Reaction Status Date / Time No Known Drug Allergies Allergy Verified 03/25/18 16:23 SEAFOOD Allergy Swelling Uncoded 03/25/18 13:47 - Current Living Status Usual Living Arrangement: With Parent - Current Mental Status Evaluation Appearance: Well Groomed Attitude: Cooperative - Affect Affect: Constrictive Appropriateness: Appropriate to Content - Mood Mood: Euthymic - Speech/Language Expressive: Coherent - Psychomotor Activity Psychomotor Activity: Slowed - Thought Process Thought Process: Intact - Thought Content Hallucinations: Absent Delusions: Absent - Self Perception Self Perception: No Impairment - Cognition Attention: Alert Orientation: Time Memory, Immediate Recall: Intact Memory, Short Term: 3/3 Memory, Remote with Promptin/3 - Concentration Serial Sevens Intact: Yes Simple Calculations Intact: Yes - Abstraction Proverb Interpretation: Intact Judgement: Intact - Insight Insight: Intact - Impulse Control Impulse Control: Good Control - Suicidal Ideation Suicidal Ideation: No - Homicidal Ideation Homicidal Ideation: No Assessment/Plan 1) No acute mental illness. 2) Discharge home in care of Step Mother. 3) No Psych follow up needed.
[2018-09-06 13:55] VITALS: BP 137/70; PULSE 97
--- NOTE | 2018-09-06 14:05 | PN ---
Progress Note (short form) - Note Progress Note: Renal follow up for hypertension Pt seen and examined at the bedside no overnight events no DOTSON, CP, SOB, blurry vision, N/V took labetalol this am Vital Signs Temperature 98.9 F 09/06/18 09:15 Pulse Rate 97 H 09/06/18 13:54 Respiratory Rate 18 09/06/18 13:54 Blood Pressure 137/70 09/06/18 13:54 O2 Sat by Pulse Oximetry (%) 100 09/03/18 00:00 Intake & Output 09/03/18 09/04/18 09/05/18 09/06/18 23:59 23:59 23:59 23:59 Intake Total 600 Output Total 1200 Balance -600 NAD + edema in LE CBC, BMP 09/05/18 06:30 09/02/18 18:51 Current Medications Acetaminophen (Tylenol -) 650 mg PO Q4H PRN PRN Reason: FEVER Last Admin: 09/05/18 07:08 Dose: 650 mg Benzocaine (Americaine 20% [place] -) 1 spray TP PRN PRN PRN Reason: Pain - Topical Benzocaine (Americaine Ointment -) 1 applic [place] PRN PRN PRN Reason: Pain - Topical Bisacodyl (Dulcolax Suppository -) 10 mg RC PRN PRN PRN Reason: CONSTIPATION Last Admin: 09/04/18 09:26 Dose: 10 mg Diphenhydramine HCl (Benadryl -) 25 mg PO Q8H PRN PRN Reason: FOR ITCHING Enoxaparin Sodium (Lovenox -) 40 mg SQ DAILY [facility] Last Admin: 09/06/18 09:34 Dose: 40 mg Parenteral Electrolytes (Plasma-Lyte 148 -) 1,000 mls @ 125 mls/hr IV ASDIR SAMANTHA Last Admin: 09/02/18 19:00 Dose: 125 mls/hr Dextrose/Lactated Ringer's (D5-Lr -) 1,000 mls @ 125 mls/hr IV ASDIR SAMANTHA Oxytocin/Sodium Chloride (Normal Saline+20 Units Oxytocin -) 20 unit in 1,000 mls @ 125 mls/hr IV ASDIR SAMANTHA Ibuprofen (Motrin -) 600 mg PO Q4H PRN PRN Reason: PAIN LEVEL 1 - 3 Last Admin: 09/06/18 09:33 Dose: 600 mg Ibuprofen (Caldolor Injection -) 800 mg IVPB Q6H PRN PRN Reason: PAIN 6-10 if PO not effective. Last Admin: 09/03/18 06:41 Dose: 800 mg Labetalol HCl (Normodyne -) 200 mg PO TID SAMANTHA Stop: 09/07/18 06:01 Last Admin: 09/06/18 06:57 Dose: 200 mg Methylergonovine Maleate (Methergine Injection -) 0.2 mg IM Q4H PRN PRN Reason: EXCESSIVE BLEEDING Oxycodone HCl (Roxicodone -) 5 mg PO Q4H PRN PRN Reason: PAIN LEVEL 4 - 6 Last Admin: 09/03/18 19:29 Dose: 5 mg Oxycodone HCl (Roxicodone -) 10 mg PO Q4H PRN PRN Reason: PAIN LEVEL 7 - 10 Last Admin: 09/06/18 09:31 Dose: 10 mg Senna/Docusate Sodium (Pericolace -) 2 tablet PO HS PRN PRN Reason: CONSTIPATION Last Admin: 09/05/18 21:35 Dose: 2 tablet Simethicone (Mylicon -) 80 mg PO Q4H PRN PRN Reason: GAS Last Admin: 09/06/18 09:34 Dose: 80 mg Witch Alaina/Glycerin (Tucks Pads -) 1 pad TP PRN PRN PRN Reason: Pain - Topical 28 yo f g p0 edc 09/02/18 40 weeks, morbidly obese, s/p LSCS, patient developed Hypertension intra- and Hypertensuion. # Hypertension BP is improved and stable stable for discharge home with no antihypertensive medications discussed importance of low salt diet and BP Monitoring as outpatient (can be done at our office or at OB's office) pain control as needed Thank you Jacek Lake DO
--- NOTE | 2018-09-06 16:51 | DS ---
Physical Exam-SHOES SALESPERSON Vital Signs: Vital Signs Temperature 98.9 F 09/06/18 09:15 Pulse Rate 97 H 09/06/18 13:54 Respiratory Rate 18 09/06/18 13:54 Blood Pressure 137/70 09/06/18 13:54 O2 Sat by Pulse Oximetry (%) 100 09/03/18 00:00 Constitutional: Yes: Calm Eyes: Yes: Conjunctiva Clear HENT: Yes: Atraumatic Neck: Yes: Supple, Trachea Midline Cardiovascular: Yes: Regular Rate and Rhythm Respiratory: Yes: Regular Gastrointestinal: Yes: Normal Bowel Sounds Pelvis: Yes: WNL External Genitalia: Yes: Normal Vaginal Exam: Yes: Normal Cervix: Yes: Normal Wound/Incision: Yes: Well Approximated, [place] Intact Neurological: Yes: Alert Psychiatric: Yes: Other (Flat affect) Labs: CBC, BMP 09/05/18 06:30 09/02/18 18:51 Delivery - Delivery Type of Anesthesia: Spinal EBL (cc): 500 Delivery, Single - Stages of Labor Date 1st Stage Initiatied: 09/02/18 Time 1st Stage Initiated: 14:00 Date of Delivery: 09/02/18 Time of Delivery: 20:09 Time Placenta Delivered: 20:11 - Condition of Infant Equipment Worker/Solar Installation Technician Present: Yes Name: Ivonne Velasquez Gender: Male Weight: 6 lb 6 oz Position: OP Total Hours ROM (Hrs/Mins): 6h 9m - 1 Minute Total Score: 5 5 Minutes Total Score: 7 - Feeding Plan Initial Plan: Elected not to breastfeed exclusively throughout hospitalization Discharge Summary Reason For Visit: LABOR Current Active Problems 40 weeks gestation of (Acute) membrane rupture (Acute) Hypertension affecting (Acute) Hypertension affecting , delivered, current hospitalization (Acute) Meconium in amniotic fluid (Acute) Morbid (severe) obesity due to excess calories (Acute) Non-reassuring electronic monitoring tracing (Acute) Post term over 40 weeks (Acute) Status post primary low transverse section (Acute) Procedures: Principal: Primary Low Transverse Hospital Course: Patient received Labetalol for hypertension. She was seen by Gas Appliance Repairer and Psychiatrist. Condition: Fair - Instructions Diet, Activity, Other Instructions: No driving, no lifting x 4 weeks F/U in clinic for yulisa removal. Disposition: HOME - Home Medications Comprehensive Discharge Medication List: Ambulatory Orders Nitrofurantoin Monohyd/M-Cryst [Macrobid -] 100 mg PO BID #14 capsule 09/12/14 Terconazole [Terazol 7] 45 gm VG DAILY #1 cream.appl 09/12/14
--- NOTE | 2018-09-09 18:30 | PATH ---
Surgical Pathology Report Patient Name: HANNAH MOSES [facility]. Rec. #: [id number] /Age/Gender: 1990 (Age: 28) / F Account: [id number] Location: [facility] OBS/HAND RIGGER Taken: 09/02/2018 Received: 09/05/2018 Reported: 09/09/2018 Physicians: David Hall M.D. Specimen(s) Received PLACENTA Clinical History Chlamydia, asthma, morbid obesity, PIH Final Diagnosis PLACENTA, SECTION: 381 G THIRD TRIMESTER PLACENTA WITH MILD TO MODERATE ACUTE CHORIOAMNIONITIS AND MECONIUM LADEN MACROPHAGES TRIVASCULAR UMBILICAL CORD WITH PANVASCULITIS AND FUNISITIS. FOCAL INTRAPARENCHYMAL HEMORRHAGE (~10% OF PLACENTAL SURFACE). Electronically Signed Sofia Das M.D. Gross Description The specimen is received fresh labeled placenta and is a 381 gram, 13.5 x 13.0 x 3.5 cm. placenta with attached membranes and umbilical cord. The attached membranes are hernandez green, meconium-stained, translucent with focal opacities and insert marginally. The umbilical cord measures 23 cm. in length and averages 1.2 cm. in diameter. The cord inserts eccentrically, 3.5 cm. to the nearest margin. No true knots or strictures are identified. Cut surface of the umbilical cord reveals 3 vessels. The surface is chow green, meconium-stained with minimal fibrin deposition and appropriate caliber vessels. The maternal surface is red-brown with focal defects. Sectioning reveals a 1.0 cm in greatest dimension hemorrhagic intraparenchymal lesion. The remaining placental parenchyma is red-brown and spongy. Fabric Worker sections are submitted in 4 cassettes as follows: 1-membrane roll and umbilical cord; 2-lesion; 0-2-lyqj-thickness sections of placenta. 09/08/201809/08/2018
== END 2018-09-06 18:30 | disposition home or self-care (01) | DRG 540 ==
LOC: JDEL 17:20 → JLDR 17:30 → J3W 09-03 00:54
PROVIDERS: ADMIT Obstetrics & Gynecology; ATTEND Obstetrics & Gynecology
PROC: 10D00Z1 Extraction of Products of Conception, Low, Open Approach (ICD-10-PCS; principal; 2018-09-02)
DX: O48.0 Post-term pregnancy (principal); O77.0 Labor and delivery complicated by meconium in amniotic fluid; O76 Abnormality in fetal heart rate and rhythm complicating labor and delivery; O99.214 Obesity complicating childbirth; O13.5 Gestational [pregnancy-induced] hypertension without significant proteinuria, complicating the puerperium; E66.01 Morbid (severe) obesity due to excess calories; Z3A.40 40 weeks gestation of pregnancy; Z37.0 Single live birth
CPT/HCPCS: 36415; 36600; 80053; 82803; 84550; 85025; 85610; 85730; 86593; 86850; 86900; 86901; 88307-TC